=== PATIENT | male | born 2000 | race Caucasian/White ===

== ENCOUNTER 2018-06-13 22:40 | Emergency (ER) | payer OTHER ==
--- NOTE | 2018-06-13 22:43 | ER Report ---
History and Physical Time Seen By MD: 22:43 HPI/ROS CHIEF COMPLAINT: Knee injury HISTORY OF PRESENT ILLNESS: This is a 18-year-old male. The playing soccer tonight ran into another person. Ensign a pop in his left knee. Pain on the medial aspect of the knee. He does have a history of an old injury there with an evulsion fracture. Knee also feels a little unstable when he is walking on it. Concerned about reinjury. Has normal sensation in the leg. Pain worsens with movement of the knee. Allergies: Coded Allergies: No Known Drug Allergies (Unverified , 06/13/18) Home Meds No Active Prescriptions or Reported Meds Reviewed Nurses Notes: Yes Constitutional Vital Sign - Last 24 Hours 06/13/18 06/13/18 06/13/18 06/13/18 22:43 22:55 23:00 23:10 Temp 98.6 Pulse 106 100 89 Resp 20 B/P (MAP) 145/96 124/85 (98) Pulse Ox 92 92 94 O2 Delivery Room Air 06/13/18 06/13/18 06/13/18 23:25 23:30 23:40 Pulse 85 83 B/P (MAP) 122/108 (113) Pulse Ox 91 87 Physical Exam General appearance: Alert no distress. Musculoskeletal: Left knee shows no significant swelling. There is no effusion. There is no obvious deformity of the knee. Patella had no pain. Medial jointline is tender to palpation. Lateral jointline is nontender to palpation. Frantz is negative. I cannot feel a definitive endpoint when testing the medial collateral ligament, but the patient does have significant guarding as well. There is a good endpoint of the lateral collateral ligament. There is no tenderness proximal or distal to the knee. Neurologic: The patient has normal sensation distal to the injury. Cardiovascular: Normal pulses and capillary refill in the foot Skin: No rashes. DIFFERENTIAL DIAGNOSIS: After history and physical exam differential diagnosis was considered for knee injury including sprain, fracture, meniscus injury and soft tissue injury. Medical Decision Making EKG/Imaging Imaging INDICATION: knee injury EXAM DATE: 06/13/2018 10:57 PM COMPARISON: None. FINDINGS: 4 views left knee. Mineralization is normal. No acute alignment abnormality or fracture. Soft tissues are unremarkable. IMPRESSION: Normal left knee. Report Dictated By: Itz Russell MD at 06/13/2018 11:23 PM ED Course/Re-evaluation ED Course Discussed results of imaging. Cannot rule out soft tissue/MCL or other soft tissue injury. Recommended knee immobilizer, crutches, conservative measures and follow-up with orthopedic surgery. Decision to Disposition Date: Jun 13, 2018 Decision to Disposition Time: 23:51 Depart Departure Latest Vital Signs Vital Signs Date Time Temp Pulse Resp B/P (MAP) Pulse Ox O2 Delivery O2 Flow Rate FiO2 06/13/18 23:40 83 87 06/13/18 23:30 122/108 (113) 06/13/18 22:43 98.6 20 Room Air Impression: Primary Impression: Knee strain Condition: Improved Disposition: HOME OR SELF-CARE New Scripts No Active Prescriptions or Reported Meds Patient Instructions: Knee Immobilizer (ED) Additional Instructions: Ibuprofen 200mg over the counter tablets, take 4 tablets three times a day with food. Apply ice 20 minutes every 1-2 hours while awake. Rest the injured area, keep it elevated while at rest. Use the knee immobilizer with crutches until improving. If no improvement you'll need to follow-up with orthopedic surgery for further evaluation. If the knee is feeling better after a few days, you can take off the immobilizer and began gentle range of motion exercises. If this causes increased pain or the knee feels unstable, reapply the immobilizer and see orthopedic surgery Problem Qualifiers Primary Impression: Knee strain Encounter type: initial encounter Laterality: left Qualified Codes: S86.912A - Strain of unspecified muscle(s) and tendon(s) at lower leg level, left leg, initial encounter EMILY ERIC MD Jun 13, 2018 22:43
--- NOTE | 2018-06-13 23:28 | RADIOLOGY IMAGING REPORT ---
FAC[place] [facility] [place] NAME: Albert Joaquin : 2000 MR: [id number] V: [id number] EXAM DATE: [id number] ORDERING PHYSICIAN: EMILY ERIC TECHNOLOGIST: Location: [facility] Patient: Albert Joaquin : 2000 Visit/Account:[id number] Date of Sevice: 06/13/2018 INDICATION: knee injury EXAM DATE: 06/13/2018 10:57 PM COMPARISON: None. FINDINGS: 4 views left knee. Mineralization is normal. No acute alignment abnormality or fracture. Soft tissues are unremarkable. IMPRESSION: Normal left knee. Report Dictated By: Itz Russell MD at 06/13/2018 11:23 PM Report E-Signed By: Itz Russell MD at 06/13/2018 11:24 PM WSN:[id number]
[2018-06-13 23:30] VITALS: BP 122/108
== END 2018-06-13 23:57 | disposition home or self-care (01) ==
LOC: ER 23:09
DX: S86.912A Strain of unspecified muscle(s) and tendon(s) at lower leg level, left leg, initial encounter (principal)
CPT/HCPCS: 73564; 99283; L1830